=== PATIENT | male | born 1955 | race Caucasian/White ===

== ENCOUNTER 2016-08-28 13:23 | Observation (INO) ==
[2016-08-28] MEDS ORDERED: Aspirin 81 MG TAB.CHEW PO ONE (13:57)
--- NOTE | 2016-08-28 13:58 | Emergency Department Note ---
Disposition Clinical Impression: Chest pain Qualifiers: Chest pain type: unspecified Qualified Code(s): R07.9 - Chest pain, unspecified Disposition: Admitted As Inpatient Condition: Fair Referrals: NO,PCP [Primary Care Provider] - Forms: ED Satisfaction Letter Time of Disposition: 16:06 Chest Pain HPI - General Chief Complaint: ED Chest Pain Stated Complaint: Chest pain for a few hours, dizzy as well Time Seen by Provider: 08/28/16 13:49 Source: patient Mode of arrival: ambulatory Limitations: no limitations Vital Signs Reviewed: Yes Nursing Notes Reviewed: Yes - History of Present Illness HPI Narrative: 60-year-old male with hypertension and hyperlipidemia presents chest pain arrest started approximately 3 hours prior to ED arrival. No history of heart catheterization, he may have been cathetered by Dr. Jo urine half pill, but he also had irregular heartbeats is unsure if he had a coronary catheter. Pt complaint: chest pain Onset (ago): hour(s) (3) Duration: intermittent Pain Location: substernal, right chest Severity scale (1-10): 8 Quality: aching Improves with: nothing Worsens with: exertion Associated symptoms: Reports: nausea Treatments prior to arrival chest pain: none - Related Data Home Medications Medication Instructions Recorded Confirmed Aspirin 81 mg PO DAILY 06/09/15 05/17/16 Carvedilol [Coreg] 3.125 mg PO BID 06/09/15 05/17/16 Citalopram [CeleXA] 20 mg PO HS 06/09/15 05/17/16 ClonazePAM [Klonopin] 0.5 mg PO BID 06/09/15 05/17/16 Pravastatin Sodium [Pravachol] 20 mg PO HS 06/09/15 05/17/16 Losartan [Cozaar] 25 mg PO DAILY 12/07/15 05/17/16 Nitroglycerin [Nitrostat] 0.4 mg SL Q5M PRN 12/07/15 05/17/16 Pantoprazole Sodium [Protonix] 40 mg PO BID 12/07/15 05/17/16 Albuterol Sulfate [Proventil Hfa] 2 puff IH Q4HR PRN 05/17/16 05/17/16 Cholecalciferol (D-3) [Vitamin D] 2,000 unit PO DAILY 05/17/16 05/17/16 Doxazosin Mesylate [Cardura Xl] 4 mg PO DAILY 05/17/16 05/17/16 Oxygen 2 l .ROUTE HS 05/17/16 05/17/16 Allergies Allergy/AdvReac Type Severity Reaction Status Date / Time No Known Allergies Allergy Verified 05/17/16 07:13 Review of Systems: A 14 point ROS was obtained and was negative except as per below or as documented in the HPI. Constitutional: Denies: fever, chills, weakness, weight change Eyes: Denies: eye pain, eye discharge, vision change ENT: Denies: ear pain, throat pain, hearing loss, epistaxis, congestion, Cardiovascular: chest pain,Denies: palpitations, dyspnea on exertion, edema, syncope Respiratory: Denies: cough, dyspnea, wheezes, hemoptysis, stridor Gastrointestinal: Denies: abdominal pain, nausea, vomiting. diarrhea, constipation, hematemesis, hematochezia Genitourinary: Denies: urgency, dysuria, frequency, hematuria Musculoskeletal: Denies: back pain, neck pain, arthralgia, myalgia Integumentary: Denies: rash, abrasion, lesions Neurological: Denies: headache, weakness, numbness, paresthesias, confusion, abnormal gait Psychiatric: Denies: anxiety, depression, suicidal thoughts, homicidal thoughts , Endocrine: Denies: fatigue Hematological/Lymphatic: Denies: easy bleeding, easy bruising Allergic/Immunologic: Denies: facial swelling, urticaria All systems ED: reviewed and negative except as stated. Chest Pain PMH - Past Medical History Medical history: Reports: atrial fibrillation, GERD, hyperlipidemia, hypertension, kidney stones Surgical history: Reports: other Psychiatric history: Reports: no psych history - Social History Smoking Status: Never smoker Alcohol use: Reports: none Drug use: Reports: none Physical Exam General: alert and oriented, in NAD, appears stated age, is pleasant and cooperative to exam Head: NCAT, no lesions Eyes: sclera anicteric, conjunctiva normal, PERRLA bilaterally, EOMI Bilaterally Ears: normal inspection, external ear wnl Nose: nasal septum nondeviated, sinuses nontender Throat: good dentition, mucous membranes moist Neck: no lymphadenopathy, trachea midline no deviation, no JVD Resp: CTA bilaterally, no resp distress, symmetric chest rise, no wheezes, rales , or rhonchi bilaterally CV: RRR, normal S1 and S2, no m/g/r, Pulses +2 Rad, +2 DP/PT Abdomen: Soft, NTND, no hepatosplenomegaly, no hernias, Negative Rovsing's sign , Negative Au's sign Back: normal inspection, no tenderness to palpation, Negative CVA tenderness bilaterally Neuro: A&O3, CN II-XII grossly intact bilaterally, no motor or sensory deficits bilaterally, gait normal, GCS 15 [id number] Ext: normal inspection, symmetric Active and Passive ROM UE and LE bilaterally , no pedal edema bilaterally Psych: normal mood, normal affect Skin: No rashes, skin warm, dry, intact - General General appearance: alert, in no apparent distress Course Course Narrative: 60-year-old male with a heart score of 4, awaiting troponin, chest pain at rest , history of PVCs and SVT ablation with Dr. Jo a year and half ago, unclear if previous cardiac catheterization or not, his risk factors include hypertension hyperlipidemia, obesity. Chest pain approximately 3 hours prior to arrival. - Reevaluation(s) Reevaluation #1: Dr. Bradley spoke with Dr. Salvador, there is no previous cardiac catheterization , recommended admission, I did speak with Dr[facility]. Time: 16:05 Vital Signs Temperature 97.5 F L 08/28/16 13:24 Pulse Rate 64 08/28/16 13:24 Respiratory Rate 18 08/28/16 13:24 Blood Pressure 133/89 08/28/16 13:24 O2 Sat by Pulse Oximetry 96 08/28/16 13:24 Temperature 97.5 F L 08/28/16 13:24 Pulse Rate 55 08/28/16 15:45 Respiratory Rate 20 08/28/16 15:45 Blood Pressure 131/77 08/28/16 15:45 O2 Sat by Pulse Oximetry 97 08/28/16 15:45 Oxygen Delivery Oxygen Delivery Room Air Chest Pain - MDM Narrative Medical decision making narrative: 60-year-old male heart score for admitted for chest pain rule out. Troponin EKG initially negative, occasional PVCs, he has no history of heart catheterization, his chest pain started 3 hours prior to arrival. Admitted to medicine service in stable condition - Differential Diagnosis Likely: fracture of rib, pneumothorax, atypical chest pain, st elevation myocardial infraction, chest pain - Medical Records Medical records reviewed: Yes I reviewed the patient's medical records. - Lab Data Lab results reviewed: Yes I reviewed the patient's lab results. Result diagrams: 08/28/16 13:40 08/28/16 13:40 Lab Results 08/28/16 08/28/16 08/28/16 Range/Units 13:40 13:40 13:40 WBC 4.3 (4.3-11.1) K/mcL RBC 3.97 L (4.19-5.50) M/mcL Hgb 13.2 (12.9-16.9) g/dL Hct 37.8 (37.5-50.1) % MCV 95.2 (83.0-100.0) fL MCH 33.2 (28.0-33.3) pg MCHC 34.9 (31.6-35.5) g/dL RDW 14.6 H (11.5-14.5) % Plt Count 143 (140-400) K/mcL MPV 10.7 (9.4-12.4) fL Immature Gran % 0.2 (0-4) % Seg Neutrophils % 57.9 % Lymphocytes % 30.8 % Monocytes % 8.1 % Eosinophils % 2.1 % Basophils % 0.9 % Neutrophils # 2.5 (1.6-8.9) K/mcL Lymphocytes # 1.3 (0.6-4.6) K/mcL Monocytes # 0.4 (0.0-1.3) K/mcL Eosinophils # 0.1 (0.0-0.6) K/mcL Basophils # 0.0 (0.0-0.2) K/mcL PT 12.5 H (9.4-12.1) Seconds INR 1.2 APTT 30.4 (26.0-36.0) Seconds Sodium (136-145) mEq/L Potassium (3.5-4.5) mEq/L Chloride (98-109) mEq/L Carbon Dioxide (19-29) mEq/L BUN (8-26) mg/dL Creatinine (0.72-1.25) mg/dL Est GFR ( Amer) (> 60) Est GFR (Non-Af Amer) (> 60) BUN/Creatinine Ratio (6-26) Glucose (70-99) mg/dL Calculated Osmolality (280-300) Calcium (8.6-10.8) mg/dL Troponin I (0-0.03) ng/mL B-Natriuretic Peptide 106 H (0-100) pg/mL 08/28/16 08/28/16 Range/Units 13:40 13:40 WBC (4.3-11.1) K/mcL RBC (4.19-5.50) M/mcL Hgb (12.9-16.9) g/dL Hct (37.5-50.1) % MCV (83.0-100.0) fL MCH (28.0-33.3) pg MCHC (31.6-35.5) g/dL RDW (11.5-14.5) % Plt Count (140-400) K/mcL MPV (9.4-12.4) fL Immature Gran % (0-4) % Seg Neutrophils % % Lymphocytes % % Monocytes % % Eosinophils % % Basophils % % Neutrophils # (1.6-8.9) K/mcL Lymphocytes # (0.6-4.6) K/mcL Monocytes # (0.0-1.3) K/mcL Eosinophils # (0.0-0.6) K/mcL Basophils # (0.0-0.2) K/mcL PT (9.4-12.1) Seconds INR APTT (26.0-36.0) Seconds Sodium 140 (136-145) mEq/L Potassium 3.8 (3.5-4.5) mEq/L Chloride 107 (98-109) mEq/L Carbon Dioxide 25 (19-29) mEq/L BUN 11 (8-26) mg/dL Creatinine 0.88 (0.72-1.25) mg/dL Est GFR ( Amer) > 60 (> 60) Est GFR (Non-Af Amer) > 60 (> 60) BUN/Creatinine Ratio 13 (6-26) Glucose 85 (70-99) mg/dL Calculated Osmolality 289 (280-300) Calcium 8.8 (8.6-10.8) mg/dL Troponin I 0.01 (0-0.03) ng/mL B-Natriuretic Peptide (0-100) pg/mL - Radiology Data Radiology results reviewed: Yes I reviewed the patient's radiology results. Chest X-Ray 08/28/16 13:57 IMPRESSION: No acute cardiac or pulmonary disease. D/ / Luis Plascencia MD / Luis Plascencia MD Interpreting Provider: Luis Plascencia MD - EKG Data EKG attestation: Yes I reviewed and interpreted this EKG. EKG shows normal: sinus rhythm Rhythm: NSR (67 bpm, occasional PVCs. 159 and MD interval QRS 82 QTC 414) Interpretation: nonspecific ST-T wave changes - Core Measures AMI Core Measures Followed: Yes Heart Score - Score History: Moderately Suspicious EKG: Normal Age: 45-65 Risk Factors: Equal/Greater than 3 risk factor or history of atherosclerotic disease Troponin: Less than normal limit HEART Score Total: 4
[2016-08-28 14:12] LABS: Basophils % 0.9 %; Eosinophils # 0.1 K/mcL (0.0-0.6); Eosinophils % 2.1 %; Hematocrit 37.8 % (37.5-50.1); Hemoglobin 13.2 g/dL (12.9-16.9); Immature Granulocytes % 0.2 % (0-4); Lymphocytes # 1.3 K/mcL (0.6-4.6); Lymphocytes % 30.8 %; Mean Corpuscular HGB Conc 34.9 g/dL (31.6-35.5); Mean Corpuscular Hemoglobin 33.2 pg (28.0-33.3); Mean Corpuscular Volume 95.2 fL (83.0-100.0); Mean Platelet Volume 10.7 fL (9.4-12.4); Monocytes # 0.4 K/mcL (0.0-1.3); Monocytes % 8.1 %; Neutrophils # 2.5 K/mcL (1.6-8.9); Platelet Count 143 K/mcL (140-400); Red Blood Count 3.97 M/mcL (4.19-5.50); Red Cell Distribution Width 14.6 % (11.5-14.5); Segmented Neutrophils % 57.9 %
[2016-08-28 14:15] LABS: INR 1.2; Prothrombin Time 12.5 Seconds (9.4-12.1)
[2016-08-28 14:18] LABS: Activated Partial Thrombo Time 30.4 Seconds (26.0-36.0)
[2016-08-28 14:23] LABS: BUN/Creatinine Ratio 13 (6-26); Blood Urea Nitrogen 11 mg/dL (8-26); Calcium 8.8 mg/dL (8.6-10.8); Carbon Dioxide 25 mEq/L (19-29); Chloride 107 mEq/L (98-109); Glucose 85 mg/dL (70-99); Osmolality,Calculated 289 (280-300); Potassium 3.8 mEq/L (3.5-4.5); Sodium 140 mEq/L (136-145); eGFR For African Americans > 60 (> 60); eGFR For Non-African Americans > 60 (> 60)
[2016-08-28] MEDS: Nitroglycerin 0.4 MG TAB.SUBL SL ONE ×3 (14:39→15:14)
--- NOTE | 2016-08-28 15:56 | Emergency Department Note ---
Disposition Clinical Impression: Chest pain Qualifiers: Chest pain type: unspecified Qualified Code(s): R07.9 - Chest pain, unspecified Disposition: Admitted As Inpatient Condition: Fair General Adult HPI - General Chief complaint: ED Chest Pain Stated complaint: Chest pain for a few hours, dizzy as well Time Seen by Provider: 08/28/16 13:49 Source: patient Mode of arrival: ambulatory Limitations: no limitations - History of Present Illness Pain Scale: 0 - Related Data Home Medications Medication Instructions Recorded Confirmed Aspirin 81 mg PO DAILY 06/09/15 08/28/16 Carvedilol [Coreg] 3.125 mg PO BID 06/09/15 08/28/16 Citalopram [CeleXA] 20 mg PO HS 06/09/15 08/28/16 ClonazePAM [Klonopin] 0.5 mg PO BID 06/09/15 08/28/16 Pravastatin Sodium [Pravachol] 20 mg PO HS 06/09/15 08/28/16 Losartan [Cozaar] 25 mg PO DAILY 12/07/15 08/28/16 Nitroglycerin [Nitrostat] 0.4 mg SL Q5M PRN 12/07/15 08/28/16 Pantoprazole Sodium [Protonix] 40 mg PO BID 12/07/15 08/28/16 Albuterol Sulfate [Proventil Hfa] 2 puff IH Q4HR PRN 05/17/16 08/28/16 Cholecalciferol (D-3) [Vitamin D] 2,000 unit PO DAILY 05/17/16 08/28/16 Doxazosin Mesylate [Cardura Xl] 4 mg PO DAILY 05/17/16 08/28/16 Oxygen 2 l .ROUTE HS 05/17/16 08/28/16 Allergies Allergy/AdvReac Type Severity Reaction Status Date / Time No Known Allergies Allergy Verified 05/17/16 07:13 Past Medical History - Past Medical History Medical history: Reports: atrial fibrillation, GERD, hyperlipidemia, hypertension, kidney stones Surgical history: Reports: other Psychiatric history: Reports: no psych history - Social History Smoking Status: Never smoker Smokeless Tobacco Status: No Alcohol use: Reports: none Drug use: Reports: none Physical Exam - General Limitations: no limitations General appearance: alert, in no apparent distress Course - Reevaluation(s) Reevaluation #1: Saw the patient with the resident, Dr. Contreras. Patient presents with vague chest pain to the right chest and radiates into his left shoulder. Been going on for several hours prior to arrival. His EKG looks okay and his initial set of enzymes negative. However patient has risk factors and story is concerning for cardiac pain. He thought he had a heart Physician development more than a year ago here at [place] but I spoke to the regional safety manager on-call, Dr. Jo, and she went through all the records and there is no evidence of a heart catheterization. There is a cardiac ablation done a number of years ago but otherwise no significant procedures. Therefore we will admit the patient for serial enzymes and rule out KS. Time: 15:56 Vital Signs Temperature 97.5 F L 08/28/16 13:24 Pulse Rate 64 08/28/16 13:24 Respiratory Rate 18 08/28/16 13:24 Blood Pressure 133/89 08/28/16 13:24 O2 Sat by Pulse Oximetry 96 08/28/16 13:24 Temperature 97.7 F 08/30/16 07:15 Pulse Rate 69 08/30/16 07:15 Respiratory Rate 16 08/30/16 07:15 Blood Pressure 148/95 08/30/16 07:15 O2 Sat by Pulse Oximetry 98 08/30/16 07:15 Oxygen Delivery Oxygen Delivery Room Air Medical Decision Making - Lab Data Result diagrams: 08/29/16 00:58 08/29/16 00:58 Lab Results 08/28/16 08/28/16 08/28/16 Range/Units 13:40 13:40 13:40 WBC 4.3 (4.3-11.1) K/mcL RBC 3.97 L (4.19-5.50) M/mcL Hgb 13.2 (12.9-16.9) g/dL Hct 37.8 (37.5-50.1) % MCV 95.2 (83.0-100.0) fL MCH 33.2 (28.0-33.3) pg MCHC 34.9 (31.6-35.5) g/dL RDW 14.6 H (11.5-14.5) % Plt Count 143 (140-400) K/mcL MPV 10.7 (9.4-12.4) fL Immature Gran % 0.2 (0-4) % Seg Neutrophils % 57.9 % Lymphocytes % 30.8 % Monocytes % 8.1 % Eosinophils % 2.1 % Basophils % 0.9 % Neutrophils # 2.5 (1.6-8.9) K/mcL Lymphocytes # 1.3 (0.6-4.6) K/mcL Monocytes # 0.4 (0.0-1.3) K/mcL Eosinophils # 0.1 (0.0-0.6) K/mcL Basophils # 0.0 (0.0-0.2) K/mcL PT 12.5 H (9.4-12.1) Seconds INR 1.2 APTT 30.4 (26.0-36.0) Seconds Sodium (136-145) mEq/L Potassium (3.5-4.5) mEq/L Chloride (98-109) mEq/L Carbon Dioxide (19-29) mEq/L BUN (8-26) mg/dL Creatinine (0.72-1.25) mg/dL Est GFR ( Amer) (> 60) Est GFR (Non-Af Amer) (> 60) BUN/Creatinine Ratio (6-26) Glucose (70-99) mg/dL Calculated Osmolality (280-300) Calcium (8.6-10.8) mg/dL Troponin I (0-0.03) ng/mL B-Natriuretic Peptide 106 H (0-100) pg/mL 08/28/16 08/28/16 Range/Units 13:40 13:40 WBC (4.3-11.1) K/mcL RBC (4.19-5.50) M/mcL Hgb (12.9-16.9) g/dL Hct (37.5-50.1) % MCV (83.0-100.0) fL MCH (28.0-33.3) pg MCHC (31.6-35.5) g/dL RDW (11.5-14.5) % Plt Count (140-400) K/mcL MPV (9.4-12.4) fL Immature Gran % (0-4) % Seg Neutrophils % % Lymphocytes % % Monocytes % % Eosinophils % % Basophils % % Neutrophils # (1.6-8.9) K/mcL Lymphocytes # (0.6-4.6) K/mcL Monocytes # (0.0-1.3) K/mcL Eosinophils # (0.0-0.6) K/mcL Basophils # (0.0-0.2) K/mcL PT (9.4-12.1) Seconds INR APTT (26.0-36.0) Seconds Sodium 140 (136-145) mEq/L Potassium 3.8 (3.5-4.5) mEq/L Chloride 107 (98-109) mEq/L Carbon Dioxide 25 (19-29) mEq/L BUN 11 (8-26) mg/dL Creatinine 0.88 (0.72-1.25) mg/dL Est GFR ( Amer) > 60 (> 60) Est GFR (Non-Af Amer) > 60 (> 60) BUN/Creatinine Ratio 13 (6-26) Glucose 85 (70-99) mg/dL Calculated Osmolality 289 (280-300) Calcium 8.8 (8.6-10.8) mg/dL Troponin I 0.01 (0-0.03) ng/mL B-Natriuretic Peptide (0-100) pg/mL Attestation Statement - Attestation Attestation: I, Dr. Sainz, examined this patient [id number] and my medical decision- making was reviewed with Dr. Contreras, Resident Physician. I agree with the documented findings, disposition and treatment plan as described except to the extent set forth below. Please see my progress notes for details.
--- NOTE | 2016-08-28 16:59 | Internal Med History&Physical ---
<Osvaldo Kelley - Last Filed: 08/28/16 17:15> Date of Encounter: 08/28/16 Time of Encounter: 16:58 Assessment and Plan (1) Chest pain Current visit: Yes Status: Acute Patient does exhibit signs of both typical and atypical chest pain given location and relief by nitro Will order both echocardiogram and nuclear stress test for further evaluation Obtain serial troponins x2 in addition to serial EKGs as patient has history of SVTs s/p ablation Continue patient on home ASA, Statin, BB if HR > 60, and supplemental oxygen; Morphine PRN Cardiac diet for now, but NPO after midnight in anticipation for tomorrow's procedures Qualifiers: Chest pain type: unspecified Qualified Code(s): R07.9 - Chest pain, unspecified (2) Hypertension Current visit: Yes Status: Chronic Continue home Losartan, Coreg with holding parameters if bradycardia present Monitor vitals closely while on telemetry Qualifiers: Qualified Code(s): I10 - Essential (primary) hypertension (3) AF (paroxysmal atrial fibrillation) Current visit: Yes Status: Chronic Currently in NSR with frequent PVCs, which he has history of Continue Coreg as above with holding parameters (4) Anxiety Current visit: Yes Status: Chronic Continue home dose of Klonopin and Celexa Internal Medicine - H&P: HPI Chief complaint: chest pain Admitted From: Home Plans for Post Hospital Care: Home History of present illness: Mr. Belcher is a 60 year old male who presents with chest pain that started 3 hours prior to arrival at the ED when he was arguing with his . He states the pain is located at the right side and radiates to his left arm. He had a similar episode 2 months ago but was not worked up as the ER said his symptoms were from anxiety. He also reports having shortness of breath and nausea, but no vomiting, diaphoresis, or lightheadedness. He denies having previous MIs or catheterizations but does report history of SVT that required ablation 1.5 years ago. Patient states that he does take ASA and Nitro at home, and the nitro at the ED did relieve his pain somewhat, but it still persists. His shortness of breath has also improved. Past Med Surg Social Fam HX - Past Medical History Medical history: atrial fibrillation, GERD, hyperlipidemia, hypertension, kidney stones Psychiatric history: no psych history - Past Surgical History Surgical History: other - Social History Smoking Status: Never smoker Smokeless Tobacco Status: No Alcohol use: none Drug use: none Internal Medicine - H&P: Meds RX: Aspirin 81 mg PO DAILY 06/09/15 [History] RX: Carvedilol [Coreg] 3.125 mg PO BID 06/09/15 [History] RX: Citalopram [CeleXA] 20 mg PO HS 06/09/15 [History] RX: ClonazePAM [Klonopin] 0.5 mg PO BID 06/09/15 [History] RX: Pravastatin Sodium [Pravachol] 20 mg PO HS 06/09/15 [History] RX: Losartan [Cozaar] 25 mg PO DAILY 12/07/15 [History] RX: Nitroglycerin [Nitrostat] 0.4 mg SL Q5M PRN 12/07/15 [History] RX: Pantoprazole Sodium [Protonix] 40 mg PO BID 12/07/15 [History] RX: Albuterol Sulfate [Proventil Hfa] 2 puff IH Q4HR PRN 05/17/16 [History] RX: Cholecalciferol (D-3) [Vitamin D] 2,000 unit PO DAILY 05/17/16 [History] RX: Doxazosin Mesylate [Cardura Xl] 4 mg PO DAILY 05/17/16 [History] RX: Oxygen 2 l .ROUTE HS 05/17/16 [History] Allergies No Known Allergies Allergy (Verified 05/17/16 07:13) All Systems PM: A 10-system review of systems was performed and is negative for pertinent findings except as documented above in the HPI. - Constitutional Constitutional: no chills, no fever(s), no night sweats - EENT Eyes: no change in vision, no discharge, no pain, no photophobia Nose, mouth and throat: no dysphagia, no nasal discharge, no neck pain, no sore throat - Cardiovascular Cardiovascular ROS IM: chest pain, dyspnea, no diaphoresis, no lightheadedness, no palpitations, no syncope - Respiratory Respiratory: dyspnea, no cough, no wheezing, no excessive phlegm production - Gastrointestinal Gastrointestinal: nausea, no abdominal pain, no diarrhea, no hematemesis, no hematochezia, no melena, no vomiting - Musculoskeletal Musculoskeletal ROS IM: no numbness, no tingling - Integumentary Integumentary IM: no rash, no unusual bruising - Neurological Neurological ROS: no confusion, no convulsions, no focal weakness, no numbness, no tingling, no tremor(s) - Hematologic/Lymphatic Hematologic/Lymphatic: no easy bruising - Constitutional Vitals: Temp Pulse Resp BP Pulse Ox 97.5 F L 55 20 131/77 97 08/28/16 13:24 08/28/16 15:45 08/28/16 15:45 08/28/16 15:45 08/28/16 15:45 General appearance: Present: cooperative, pleasant, no acute distress, answers questions appropriately - Head Head exam: Present: atraumatic, normocephalic - Eye Eye exam: Present: PERRL, conjuntiva pink, sclera anicteric - Neck Neck exam general surgery: Present: supple, trachea midline. Absent: lymphadenopathy - Respiratory Respiratory exam: Present: CTAB. Absent: accessory muscle use, rales, rhonchi, wheezes - Cardiovascular Cardiovascular exam: Present: bradycardia, irregular rhythm, +S1, +S2. Absent: diastolic murmur, gallop, rubs, systolic murmur - GI/Abdominal GI/Abdominal exam: Present: normal bowel sounds, soft, no peritoneal signs. Absent: distended, tenderness - Extremities Exam Extremities exam: Present: warm, radial pulses palpable and symetrical. Absent : calf tenderness, cyanotic, pedal edema - Neurological Exam Neurological exam: Present: alert, oriented X3, no focal deficits. Absent: facial droop, speech deficit - Skin Skin exam: Present: dry, intact Internal Med - H&P Results - Labs CBC & Chem 7: 08/28/16 13:40 08/28/16 13:40 <Sue Parmar - Last Filed: 08/28/16 18:15> Date of Encounter: 08/28/16 Time of Encounter: 18:14 Internal Medicine - H&P: HPI History of present illness: Mr. Belcher is a 60 year old male All Systems PM: A 10-system review of systems was performed and is negative for pertinent findings except as documented above in the HPI. - Constitutional Vitals: Temp Pulse Resp BP Pulse Ox 98.0 F 57 17 135/72 93 L 08/28/16 17:17 08/28/16 17:17 08/28/16 17:17 08/28/16 17:17 08/28/16 17:17 Internal Med - H&P Results - Labs CBC & Chem 7: 08/28/16 13:40 08/28/16 13:40 - Attending Attestation Patient was independently seen and examined at bedside. Case discussed with the resident physician. I agree with the care plan and management. Will provide patient with O2 supplementation. Pain control Serial TNI x 3, if negative-Nuclear stress test in am continue home medications.
[2016-08-28] MEDS ORDERED: Naloxone 0.4 MG/ML INJ IVP PRN (17:04)
[2016-08-28] MEDS ORDERED: Acetaminophen 325 MG TABLET PO PRN (17:04)
[2016-08-28] MEDS ORDERED: Ondansetron ODT 4 MG TAB.RAPDIS SL PRN (17:04)
[2016-08-28] MEDS ORDERED: Nitroglycerin 0.4 MG TAB.SUBL SL PRN (17:09)
[2016-08-28] MEDS: *HR* Morphine 2 MG/ML SYRINGE IVP PRN (19:34)
[2016-08-28] MEDS: clonazePAM 0.5 MG TABLET PO SCH (21:00)
[2016-08-29] MEDS: *HR* Morphine 2 MG/ML SYRINGE IVP PRN ×4 (00:20→22:21)
[2016-08-29 01:39] LABS: Hemoglobin 12.3 g/dL (12.9-16.9); Mean Corpuscular HGB Conc 34.2 g/dL (31.6-35.5); Mean Corpuscular Volume 96.5 fL (83.0-100.0); Mean Platelet Volume 10.7 fL (9.4-12.4); Platelet Count 126 K/mcL (140-400); Red Blood Count 3.73 M/mcL (4.19-5.50); Red Cell Distribution Width 14.5 % (11.5-14.5)
[2016-08-29 01:54] LABS: BUN/Creatinine Ratio 13 (6-26); Blood Urea Nitrogen 11 mg/dL (8-26); Calcium 8.5 mg/dL (8.6-10.8); Carbon Dioxide 26 mEq/L (19-29); Chloride 106 mEq/L (98-109); Chol/HDL Ratio 3.3 (0-4.9); Cholesterol 117 mg/dL (< 200); Glucose 95 mg/dL (70-99); HDL Cholesterol 36 mg/dL (40-59); LDL Cholesterol,Calculated 65 mg/dL (0-99); Osmolality,Calculated 287 (280-300); Potassium 3.6 mEq/L (3.5-4.5); Sodium 139 mEq/L (136-145); Triglycerides 78 mg/dL (< 150); eGFR For African Americans > 60 (> 60); eGFR For Non-African Americans > 60 (> 60)
[2016-08-29] MEDS ORDERED: Regadenoson 0.4 MG/5 ML SYRINGE IVP ONE (06:19)
--- NOTE | 2016-08-29 09:35 | ECHO - Doppler Report ---
Echocardiogram Name: Rg HDZ Date of Study: 08/28/2016 Date: 1955 Ht: 69.0 in Medical Record#: [id number] Age: 60 Wt: 185.0 lb Gender: Male BSA: 2 Order #: [id number] Location: [facility] Room #: 3B39 Reading Physician: Leo Stallings DO, JENNYFER DENSON FASNC Police Specialist: Jelena Roy Ordering Physician: Osvaldo Kelley DO Primary Physician: None Indications: Chest pain, Hx AFIB/SVT Impressions: LVEF 60%. Normal LV chamber size and wall thickness. Not all LV segments were well visualized, but overall LVEF appears normal. Mild left ventricular diastolic dysfunction. Normal right ventricular structure and function. Mild aortic regurgitation. No evidence of pulmonary hypertension. Mildly dilated aortic root. Sinuses of Valsalva measure 4.0 cm. There is a trivial inferolateral pericardial effusion present. No tamponade. Left Ventricular Wall Motion: Rest Echo Findings The apical anterior, mid anterior and basal anterior perez were not visualized. All other wall segments showed normal motion. Findings: Study Quality * Technically sub-optimal due to poor echocardiographic windows. ECG Findings * Sinus rhythm with PVCs. Left Ventricle * LVEF 60%. * Normal LV chamber size and wall thickness. * Not all LV segments were well visualized, but overall LVEF appears normal. * Mild left ventricular diastolic dysfunction. Right Ventricle * Normal right ventricular structure and function. Left Atrium * Moderately dilated left atrium. Right Atrium * Normal right atrial size. Interatrial Septum * Interatrial septum not well evaluated. Aortic Valve * Aortic valve not well visualized. * Mild aortic regurgitation. * No aortic stenosis. Mitral Valve * Normal mitral valve structure and function. * No mitral stenosis. * Trace mitral regurgitation. Tricuspid Valve * Normal tricuspid valve structure and function. * Trace tricuspid regurgitation. * No evidence of pulmonary hypertension. Pulmonic Valve * Pulmonic valve not well visualized. * No pulmonic regurgitation. Aorta * Mildly dilated aortic root. Sinuses of Valsalva measure 4.0 cm. Pericardium * There is a trivial inferolateral pericardial effusion present. * There is no echocardiographic evidence of tamponade. IVC * The IVC is not well evaluated. Pulmonary Artery * Pulmonary artery not well visualized. History Hypertension Hypercholesteremia 03/01/2014 a Previous Echo was performed. Measurements: BP: 135/ 72 2D Normal Values RVIDd: 2.58 cm <2.7 cm IVSd: .65 cm 0.6 - 1.0 cm LVIDd: 5.49 cm 3.7 - 5.6 cm LVPWd: .86 cm 0.6 - 1.1 cm LVIDs: 4.18 cm 1.5 - 3.6 cm AO: 3.80 cm < 4.0 cm LA: 3.70 cm 2.0 - 4.0cm %FS: 23.90 cm >25 % LVOT Diam: 2.75 cm LA volume: 65 Mitral Valve Peak E:.70 m/sec Peak A:.83 m/sec E/A Ratio:0.8 Peak E' Lat Jarrod:7.09 cm/s Peak E' Med Jarrod:6.71 cm/s E/E' Lat Ratio:9.9 E/E' Med Ratio:10.4 Aortic Valve AI pressure Half-time: 949.00 msec Tricuspid Valve TV Regurg Peak Grad: 16.00mmHg TV Regurg Peak Jarrod: 2.01m/sec Updated by Leo Stallings DO, FACMinerva, JENNYFER, LETA on 08/29/2016 9:28:23 AM electronically signed on 08/29/2016 9:30:01 AM with status of Final Wall Motion Ward: 1=Normal, 2=Hypokinesis, 3=Akinesis, 4=Dyskinesis, 5=Aneurysmal, 6=Hyperkinetic, X=Not Visualized (Blank)=Missing
--- NOTE | 2016-08-29 09:38 | Nuclear Medicine Stress Report ---
Regadenoson Nuclear Stress Name: Rg HDZ Date of Study: 08/29/2016 Date: 1955 Ht: 69.0 in Medical Record#: [id number] Age: 60 Wt: 185.0 lb Gender: Male Order #: [id number] Location: [facility] IP Room: [facility] Supervising Provider: Katt Barone CNP Reading Physician: Leo Stallings DO, JANIYA, LETA BURGER Ordering Physician: Maria T Jaquez CNP Primary Care Physician: Dusty Morales DO Stress Technologist: Trudy Sarmiento, JANUARY Television Agent: Siddhartha Pineda Indications: Chest Pain Impression: Pharmacologic stress ECG is non-diagnostic for ischemia due to submaximal HR. Frequent monomorphic PVCs noted during stress and recovery. Gated EF = 60%. Perfusion imaging was negative for ischemia or infarct. History: Hypertension Hypercholesteremia Stress Test Summary: Stress Test Type: Pharmacologic Regadenoson 0.4mg/5ml given IV Baseline Information: Initial Heart Rate: 51 Blood Pressure: 148/88 Stress Information: Test Terminated Due to (primary): As per protocol Maximum Blood Pressure: 116/84 Maximum Heart Rate: 74 Percent Maximum Heart Rate Achieved: 46 Double Product: 8584 METS Reached: 1 Symptoms: No chest symptoms Nuclear Summary: SPECT myocardial perfusion imaging using Tc99m Sestamibi given intravenously was performed at rest and following cardiac stress testing. The resting images were obtained following initial dose of 11.6 mCi. Following stress an additional dose of 35.6 mCi was given at peak exercise or 30 seconds post regadenoson infusion. Medication Given: Time Medication Dose Units Route Findings: Stress Note * Resting ECG demonstrated normal sinus rhythm. * No baseline arrhythmias were noted. * Pharmacologic stress ECG is non-diagnostic for ischemia due to submaximal HR. * Frequent monomorphic PVCs noted during stress and recovery. * Patient had no chest pain during stress. * Normal hemodynamic responses to pharmacologic stress. Study Quality * Study quality is average. Gated EF % * Gated EF = 60%. Left Ventricle * The left ventricle is not dilated. LVEDV = 125 mL. NORMALS * Normal wall motion. * Normal segmental perfusion in stress. Apical Perfusion Rest * The apical septal segment shows a moderate reduction in perfusion. This resolved with stress imaging, which is consistent with artifact. TID * No evidence of transient ischemic dilatation. TID ratio = 0.85. Lung Uptake * There is no evidence of increase lung uptake. Updated by Leo Stallings DO, FACMinerva, JENNYFER, LETA on 08/29/2016 9:33:26 AM electronically signed on 08/29/2016 9:35:02 AM with status of Final
[2016-08-29] MEDS: DOXAZOSIN MESYLATE 4 MG PO SCH (10:02)
[2016-08-29] MEDS: clonazePAM 0.5 MG TABLET PO SCH ×2 (10:02→20:11)
[2016-08-29] MEDS: Aspirin 81 MG TAB.CHEW PO SCH (10:02)
--- NOTE | 2016-08-29 10:02 | Electrocardiograph Report ---
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
--- NOTE | 2016-08-29 17:22 | Internal Med Progress Note ---
Date of Encounter: 08/29/16 Time of Encounter: 17:18 - Assessment and plan (1) Chest pain Current Visit: Yes Status: Acute Assessment and plan: c/o right sided chest pain, tropx2 is negative. no reproducible chest wall tenderness, No past history of VT or CHF. less likely cardiac in nature. Has history of hypertension and hyperlipidemia. We will follow results of nuclear stress test and echo. continue medical management . Qualifiers: Chest pain type: unspecified Qualified Code(s): R07.9 - Chest pain, unspecified (2) AF (paroxysmal atrial fibrillation) Current Visit: Yes Status: Chronic Assessment and plan: Currently in NSR with frequent PVCs, which he has history of Continue Coreg (3) Anxiety Current Visit: Yes Status: Chronic Assessment and plan: Continue home dose of Klonopin and Celexa (4) Hypertension Current Visit: Yes Status: Chronic Assessment and plan: Continue home Losartan, Coreg Monitor vitals closely while on telemetry Qualifiers: Qualified Code(s): I10 - Essential (primary) hypertension - Time Spent With Patient 25 - 35 minutes - Subjective Interval history: was seen at the bedside, c/o right sided chest pain, denies any palpitations or shortness of breath. No nausea or vomiting. Scheduled for nuclear stress test this morning. - Constitutional Vitals: Temp Pulse Resp BP Pulse Ox 98.3 F 63 17 119/77 94 L 08/29/16 15:28 08/29/16 15:28 08/29/16 15:28 08/29/16 15:28 08/29/16 15:28 General appearance: Present: cooperative, A&O X 3, pleasant, no acute distress, answers questions appropriately Exam: neck- supple chest- b/lc lear, no reproducible chest wall tenderness cvs-s1 and s2, no m/r/g abd-soft, non tender, bs are present ext-no edema neuro- no focal defecits Internal Medicine: Result - Labs CBC & Chem 7: 08/29/16 00:58 08/29/16 00:58 Labs: Short CBC 08/29/16 Range/Units 00:58 WBC 4.8 (4.3-11.1) K/mcL Hgb 12.3 L (12.9-16.9) g/dL Hct 36.0 L (37.5-50.1) % Plt Count 126 L (140-400) K/mcL BMP 08/29/16 00:58 Sodium 139 Potassium 3.6 Chloride 106 Carbon Dioxide 26 BUN 11 Creatinine 0.85 Glucose 95 Calcium 8.5 L Cardiac Enzymes 08/28/16 08/29/16 Range/Units 20:21 00:58 Troponin I 0.00 0.01 (0-0.03) ng/mL - ABG Interpretation ABG results: PT/INR, D-dimer PT 12.5 Seconds (9.4-12.1) H 08/28/16 13:40 - VTE Documentation of Mechanical Device: Intermittent pneumatic compression device Consult Discharge Plan - Plan Referrals: NO,PCP [Primary Care Provider] -
[2016-08-30] MEDS: clonazePAM 0.5 MG TABLET PO SCH ×2 (08:01→20:56)
[2016-08-30] MEDS: Aspirin 81 MG TAB.CHEW PO SCH (08:01)
[2016-08-30] MEDS: *HR* Morphine 2 MG/ML SYRINGE IVP PRN (08:05)
[2016-08-30] MEDS: DOXAZOSIN MESYLATE 4 MG PO SCH (08:06)
[2016-08-30] MEDS: Ibuprofen 400 MG TABLET PO PRN ×2 (14:54→21:02)
--- NOTE | 2016-08-30 17:33 | Internal Med Progress Note ---
Date of Encounter: 08/30/16 Time of Encounter: 17:30 - Assessment and plan (1) Chest pain Current Visit: Yes Status: Acute Assessment and plan: c/o right and sometimes left sided chest pain, tropx2 is negative. no reproducible chest wall tenderness, No past history of OK or CHF. less likely cardiac in nature. Has history of hypertension and hyperlipidemia. results of nuclear stress test and echo is negative for ischemia and infarction. Have discontinued morphine, denies GI symptoms. will observe one more day for the chest pain,placed on motrin for now, unclear etiology. If stable overnight can be discharged tomorrow to follow-up with PCP as outpatient. Qualifiers: Chest pain type: unspecified Qualified Code(s): R07.9 - Chest pain, unspecified (2) AF (paroxysmal atrial fibrillation) Current Visit: Yes Status: Chronic Assessment and plan: Currently in NSR with frequent PVCs, which he has history of Continue Coreg (3) Anxiety Current Visit: Yes Status: Chronic Assessment and plan: Continue home dose of Klonopin and Celexa reports sob and appears to be hyperventilationg. will add ativan prn, CXR is clear and no abnormal findings on lung exam may be 2/2 anxiety , will observe. (4) Hypertension Current Visit: Yes Status: Chronic Assessment and plan: Continue home Losartan, Coreg Monitor vitals closely while on telemetry Qualifiers: Hypertension type: essential hypertension Qualified Code(s): I10 - Essential (primary) hypertension - Time Spent With Patient 25 - 35 minutes - Subjective Interval history: was seen at the bedside, c/o on and off right /left chest pain, denies any palpitations but later during the day c/o mild sob. No nausea or vomiting. Nuclear stress test in the morning was negative for ischemia or infarction. - Constitutional Vitals: Temp Pulse Resp BP Pulse Ox 98.0 F 68 17 134/95 96 08/30/16 15:06 08/30/16 15:06 08/30/16 15:06 08/30/16 15:06 08/30/16 15:06 General appearance: Present: cooperative, A&O X 3, pleasant, no acute distress, answers questions appropriately Exam: neck- supple chest- b/lc lear, no reproducible chest wall tenderness cvs-s1 and s2, no m/r/g abd-soft, non tender, bs are present ext-no edema neuro- no focal defecits Internal Medicine: Result - Labs CBC & Chem 7: 08/29/16 00:58 08/29/16 00:58 - ABG Interpretation ABG results: PT/INR, D-dimer PT 12.5 Seconds (9.4-12.1) H 08/28/16 13:40 - VTE Documentation of Mechanical Device: Intermittent pneumatic compression device Consult Discharge Plan - Plan Referrals: NO,PCP [Non-Partnered Physician] -
[2016-08-31] MEDS: Aspirin 81 MG TAB.CHEW PO SCH (07:36)
[2016-08-31] MEDS: clonazePAM 0.5 MG TABLET PO SCH (07:36)
[2016-08-31] MEDS: DOXAZOSIN MESYLATE 4 MG PO SCH (07:37)
[2016-08-31] MEDS: Ibuprofen 400 MG TABLET PO PRN (12:15)
[2016-08-31 15:49] VITALS: BP 160/100
--- NOTE | 2016-08-31 15:50 | Discharge Summary ---
Date of Encounter: 08/31/16 Time of Encounter: 10:00 - Discharge Diagnosis (1) Chest pain Priority: Primary Status: Acute Qualifiers: Chest pain type: unspecified Qualified Code(s): R07.9 - Chest pain, unspecified - Discharge Medications Home Medications: Aspirin 81 mg PO DAILY 06/09/15 [History] Carvedilol [Coreg] 3.125 mg PO BID 06/09/15 [History] Citalopram [CeleXA] 20 mg PO HS 06/09/15 [History] ClonazePAM [Klonopin] 0.5 mg PO BID 06/09/15 [History] Pravastatin Sodium [Pravachol] 20 mg PO HS 06/09/15 [History] Losartan [Cozaar] 25 mg PO DAILY 12/07/15 [History] Nitroglycerin [Nitrostat] 0.4 mg SL Q5M PRN 12/07/15 [History] Pantoprazole Sodium [Protonix] 40 mg PO BID 12/07/15 [History] Albuterol Sulfate [Proventil Hfa] 2 puff IH Q4HR PRN 05/17/16 [History] Cholecalciferol (D-3) [Vitamin D] 2,000 unit PO DAILY 05/17/16 [History] Doxazosin Mesylate [Cardura Xl] 4 mg PO DAILY 05/17/16 [History] Oxygen 2 l .ROUTE HS 05/17/16 [History] Allergies/Adverse Reactions: Allergies No Known Allergies Allergy (Verified 05/17/16 07:13) Procedures/tests Complete & Pending: Procedures Performed prior 72 hours Category Date Time Status NM faby perf SPECT multi [NM] Routine Exams 08/29/16 07:00 Taken ECG 12 lead ECG [ECG] Routine Y 08/30/16 20:00 Completed EV echocardiogram Routine Y 08/28/16 17:04 Completed SP pharm nuclear stress Routine Y 08/29/16 07:30 Completed Date of admission: 08/28/16 16:01 Primary care physician: Tressa Bowers Discharging clinician: Dez Stark - Patient Status Disposition: Home, Self-Care Overall status at discharge: patient is progressing back to baseline - Discharge Instructions Instructions: Chest Pain (DC) Follow Up With: NO,PCP [Non-Partnered Physician] - - Diet and Activity Activity: increase activity as tolerated Interval History: Pt is a 60 y/o gentleman [facility] significant for HTN and dyslipidemia presented with one day hx of chest pain cardiac stress test and markers negative most likely due to anxiety, recommend to follow up with his PCP in one week Hospital course: Mr. Belcher is a 60 year old male - Time Spent with Patient Total time spent providing and/or coordinating discharge services: Greater than 30 minutes - Constitutional Vitals: Temp Pulse Resp BP Pulse Ox 97.8 F 64 14 137/91 96 08/31/16 11:16 08/31/16 11:16 08/31/16 11:16 08/31/16 11:16 08/31/16 11:16 General appearance: Present: cooperative, A&O X 3, pleasant, no acute distress, answers questions appropriately - Respiratory Respiratory exam: Present: decreased breath sounds - Cardiovascular Cardiovascular exam: Present: RRR, +S1, +S2 - GI/Abdominal GI/Abdominal exam: Present: normal bowel sounds - Extremities Exam Extremities exam: Present: warm, radial pulses palpable and symetrical - VTE Documentation of Mechanical Device: Intermittent pneumatic compression device
--- NOTE | 2016-08-31 16:29 | Electrocardiograph Report ---
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
== END 2016-08-31 17:45 | disposition home or self-care (01) ==
LOC: 3BNU 13:23 → EMEROO 13:23 → 3BNU 16:59
PROVIDERS: ADMIT Internal Medicine; ATTEND Nurse Practitioner Family

== ENCOUNTER 2019-05-24 14:55 | Observation (INO) ==
[2019-05-24] MEDS ORDERED: Aspirin 325 MG TABLET PO ONE (15:08)
[2019-05-24 15:16] LABS: Basophils % 0.4 %; Eosinophils # 0.1 K/mcL (0.0-0.6); Eosinophils % 1.2 %; Hematocrit 40.9 % (37.5-50.1); Hemoglobin 14.2 g/dL (12.9-16.9); Immature Granulocytes % 0.4 % (0-4); Lymphocytes # 2.5 K/mcL (0.6-4.6); Lymphocytes % 31.7 %; Mean Corpuscular HGB Conc 34.7 g/dL (31.6-35.5); Mean Corpuscular Hemoglobin 33.3 pg (28.0-33.3); Mean Corpuscular Volume 95.8 fL (83.0-100.0); Mean Platelet Volume 9.9 fL (9.4-12.4); Monocytes # 0.6 K/mcL (0.0-1.3); Monocytes % 7.9 %; Neutrophils # 4.7 K/mcL (1.6-8.9); Platelet Count 164 K/mcL (140-400); Red Blood Count 4.27 M/mcL (4.19-5.50); Red Cell Distribution Width 16.4 % (11.5-14.5); Segmented Neutrophils % 58.4 %
[2019-05-24] MEDS: Nitroglycerin 0.4 MG TAB.SUBL SL SCH ×3 (15:17→15:42)
[2019-05-24 15:23] LABS: Prothrombin Time 11.5 Seconds (9.4-12.1)
[2019-05-24 15:26] LABS: Activated Partial Thrombo Time 28.3 Seconds (26.0-36.0)
[2019-05-24 15:38] LABS: BUN/Creatinine Ratio 10 (6-26); Blood Urea Nitrogen 10 mg/dL (8-23); Calcium 9.2 mg/dL (8.6-10.3); Carbon Dioxide 30 mEq/L (23-29); Chloride 105 mEq/L (98-107); Glucose 114 mg/dL (70-105); Osmolality,Calculated 284 (280-300); Sodium 137 mEq/L (136-145); eGFR For African Americans > 60 (> 60); eGFR For Non-African Americans > 60 (> 60)
[2019-05-24 15:39] LABS: Troponin I < 0.03 ng/mL (< 0.04)
[2019-05-24] MEDS ORDERED: Potassium Chloride Elixir 20 MEQ/15 ML UDC PO ONE (15:43)
[2019-05-24] MEDS ORDERED: Morphine Sulfate 2 MG/ML SYRINGE IVP ONE ×2 (15:56→20:08)
[2019-05-24] MEDS ORDERED: Naloxone 0.4 MG/ML INJ IVP PRN (16:58)
[2019-05-24] MEDS: Colchicine 0.6 MG TABLET PO SCH (19:58)
[2019-05-25] MEDS: *HR* Enoxaparin 40 MG/0.4 ML SYRINGE SQ SCH (06:11)
[2019-05-25] MEDS ORDERED: Regadenoson 0.4 MG/5 ML SYRINGE IVP ONE (06:31)
[2019-05-25 07:56] LABS: Hematocrit 41.9 % (37.5-50.1); Hemoglobin 14.3 g/dL (12.9-16.9); Mean Corpuscular HGB Conc 34.1 g/dL (31.6-35.5); Mean Corpuscular Hemoglobin 33.4 pg (28.0-33.3); Mean Corpuscular Volume 97.9 fL (83.0-100.0); Mean Platelet Volume 10.4 fL (9.4-12.4); Platelet Count 160 K/mcL (140-400); Red Blood Count 4.28 M/mcL (4.19-5.50); Red Cell Distribution Width 16.7 % (11.5-14.5); White Blood Count 5.7 K/mcL (4.3-11.1)
[2019-05-25 08:15] LABS: Alanine Aminotransferase 23 Units/L (7-52); Albumin 3.7 g/dL (3.5-5.7); Albumin/Globulin Ratio 1.5 (1.1-2.2); Alkaline Phosphatase 122 Units/L (34-104); Aspartate Amino Transferase 23 Units/L (13-39); BUN/Creatinine Ratio 14 (6-26); Bilirubin,Total 0.6 mg/dL (0.3-1.0); Blood Urea Nitrogen 13 mg/dL (8-23); Calcium 9.1 mg/dL (8.6-10.3); Carbon Dioxide 30 mEq/L (23-29); Chloride 104 mEq/L (98-107); Globulin 2.5 g/dL (2.4-3.5); Glucose 96 mg/dL (70-105); Osmolality,Calculated 290 (280-300); Potassium 3.5 mEq/L (3.5-5.1); Sodium 140 mEq/L (136-145); Total Protein 6.2 g/dL (6.4-8.9); eGFR For African Americans > 60 (> 60); eGFR For Non-African Americans > 60 (> 60)
[2019-05-25] MEDS: predniSONE 10 MG TABLET PO SCH (10:49)
[2019-05-25] MEDS: Aspirin 81 MG TAB.CHEW PO SCH (10:49)
[2019-05-25] MEDS: Colchicine 0.6 MG TABLET PO SCH ×2 (10:49→20:55)
[2019-05-25] MEDS: Fluticasone Propionate Nasal 50 MCG/SPRAY BOTTLE NS SCH (10:50)
[2019-05-25] MEDS ORDERED: Nitroglycerin 0.4 MG TAB.SUBL SL PRN (12:14)
[2019-05-25] MEDS: Nitroglycerin 25 MG/250 ML INFUS..BTL IVC SCH (12:56)
[2019-05-26] MEDS: *HR* Enoxaparin 40 MG/0.4 ML SYRINGE SQ SCH (05:21)
[2019-05-26] MEDS: Colchicine 0.6 MG TABLET PO SCH (07:55)
[2019-05-26] MEDS: Fluticasone Propionate Nasal 50 MCG/SPRAY BOTTLE NS SCH (07:55)
[2019-05-26] MEDS: predniSONE 10 MG TABLET PO SCH (07:56)
[2019-05-26] MEDS: Aspirin 81 MG TAB.CHEW PO SCH (07:56)
[2019-05-26] MEDS: Nitroglycerin 25 MG/250 ML INFUS..BTL IVC SCH (11:15)
[2019-05-26] MEDS ORDERED: *HR* Heparin 10,000 UNIT/10 ML VIAL ONE (13:04)
[2019-05-26] MEDS ORDERED: Nitroglycerin 1,000 MCG/10 ML VIAL IV ONE (13:04)
[2019-05-26] MEDS ORDERED: Iopamidol 125 ML INFUS..BTL ONE (13:04)
[2019-05-26] MEDS ORDERED: Heparin 1,000 UNITS/500 mL 500 ML ONE (13:04)
[2019-05-26] MEDS ORDERED: 0.9 % Sodium Chloride 1,000 ML ONE ×2 (13:04→13:05)
[2019-05-26] MEDS ORDERED: Verapamil 5 MG/2 ML VIAL ONE (13:04)
[2019-05-26] MEDS ORDERED: *HR* Midazolam HCl 2 MG/2 ML VIAL ONE (13:51)
[2019-05-26] MEDS ORDERED: *HR* FentaNYL (PF) 100 MCG/2 ML VIAL ONE (13:51)
[2019-05-26] MEDS ORDERED: ISOVUE-370 200 ML INFUS..BTL ONE (14:25)
[2019-05-26] MEDS ORDERED: Isosorbide MONOnitrate (24 HR) 30 MG TAB.ER.24H PO SCH (16:15)
[2019-05-26 19:13] VITALS: BP 131/77
== END 2019-05-26 19:15 | disposition home or self-care (01) ==
LOC: EMEROOARM 14:55 → 3BNU 14:55 → SUATTDRO 17:02 → 3BNU 17:53
PROVIDERS: ADMIT Pharmacist; ATTEND Student in an Organized Health Care Education/Training Program

== ENCOUNTER 2019-09-18 11:54 | Observation (INO) ==
[2019-09-18] MEDS ORDERED: Aspirin 81 MG TAB.CHEW PO STA (12:21)
[2019-09-18] MEDS: Nitroglycerin 0.4 MG TAB.SUBL SL PRN ×2 (12:58→13:05)
[2019-09-18 12:59] LABS: Basophils # 0.1 K/mcL (0.0-0.2); Basophils % 0.9 %; Eosinophils # 0.2 K/mcL (0.0-0.6); Eosinophils % 3.9 %; Hematocrit 39.5 % (37.5-50.1); Hemoglobin 14.2 g/dL (12.9-16.9); Immature Granulocytes % 0.2 % (0-4); Lymphocytes # 1.4 K/mcL (0.6-4.6); Lymphocytes % 24.2 %; Mean Corpuscular HGB Conc 35.9 g/dL (31.6-35.5); Mean Corpuscular Hemoglobin 34.3 pg (28.0-33.3); Mean Corpuscular Volume 95.4 fL (83.0-100.0); Monocytes # 0.5 K/mcL (0.0-1.3); Monocytes % 8.4 %; Neutrophils # 3.5 K/mcL (1.6-8.9); Platelet Count 165 K/mcL (140-400); Red Blood Count 4.14 M/mcL (4.19-5.50); Red Cell Distribution Width 12.9 % (11.5-14.5); Segmented Neutrophils % 62.4 %; White Blood Count 5.6 K/mcL (4.3-11.1)
[2019-09-18 13:03] LABS: INR 1.1; Prothrombin Time 12.2 Seconds (9.4-12.1)
[2019-09-18 13:06] LABS: Activated Partial Thrombo Time 32.9 Seconds (26.0-36.0)
[2019-09-18 13:20] LABS: BUN/Creatinine Ratio 13 (6-26); Blood Urea Nitrogen 11 mg/dL (8-23); Calcium 8.9 mg/dL (8.6-10.3); Carbon Dioxide 28 mEq/L (23-29); Chloride 102 mEq/L (98-107); Glucose 84 mg/dL (70-105); Osmolality,Calculated 287 (280-300); Potassium 3.8 mEq/L (3.5-5.1); Sodium 139 mEq/L (136-145); eGFR For African Americans > 60 (> 60); eGFR For Non-African Americans > 60 (> 60)
[2019-09-18 13:21] LABS: Troponin I < 0.03 ng/mL (< 0.04)
[2019-09-18] MEDS ORDERED: Naloxone 0.4 MG/ML INJ IVP PRN (17:31)
[2019-09-18] MEDS ORDERED: Mag Hydrox/Al Hydrox/Simeth 30 ML UDC PO PRN (17:31)
[2019-09-18] MEDS ORDERED: MOM Conc 10 ML UD.LIQ PO PRN (17:31)
[2019-09-18] MEDS ORDERED: *HR* Promethazine 25 MG/ML VIAL IVP PRN (17:31)
[2019-09-18] MEDS ORDERED: Acetaminophen 325 MG TABLET PO PRN (17:31)
[2019-09-18] MEDS ORDERED: Ondansetron 4 MG/2 ML VIAL IVP PRN (17:31)
[2019-09-18] MEDS: *HR* Heparin 5,000 UNIT/ML VIAL SQ SCH (19:29)
[2019-09-19] MEDS: *HR* Heparin 5,000 UNIT/ML VIAL SQ SCH (06:01)
[2019-09-19 07:56] VITALS: BP 154/99
[2019-09-19] MEDS ORDERED: Isosorbide MONOnitrate (24 HR) 60 MG TAB.ER.24H PO SCH (09:00)
[2019-09-19] MEDS ORDERED: Fluticasone Propionate Nasal 50 MCG/SPRAY BOTTLE NS SCH (09:00)
[2019-09-19] MEDS ORDERED: Aspirin 81 MG TAB.CHEW PO SCH (09:00)
[2019-09-19] MEDS ORDERED: Cholecalciferol (D-3) 1,000 UNIT (25MCG) TABLET PO SCH (09:00)
[2019-09-19 09:34] LABS: Basophils # 0.1 K/mcL (0.0-0.2); Basophils % 0.9 %; Eosinophils # 0.3 K/mcL (0.0-0.6); Eosinophils % 4.5 %; Hematocrit 41.6 % (37.5-50.1); Hemoglobin 15.1 g/dL (12.9-16.9); Immature Granulocytes % 0.2 % (0-4); Lymphocytes # 1.2 K/mcL (0.6-4.6); Lymphocytes % 17.9 %; Mean Corpuscular HGB Conc 36.3 g/dL (31.6-35.5); Mean Corpuscular Hemoglobin 34.3 pg (28.0-33.3); Mean Corpuscular Volume 94.5 fL (83.0-100.0); Mean Platelet Volume 9.8 fL (9.4-12.4); Monocytes # 0.5 K/mcL (0.0-1.3); Neutrophils # 4.5 K/mcL (1.6-8.9); Platelet Count 157 K/mcL (140-400); Red Cell Distribution Width 12.7 % (11.5-14.5); Segmented Neutrophils % 68.5 %; White Blood Count 6.6 K/mcL (4.3-11.1)
[2019-09-19 09:53] LABS: BUN/Creatinine Ratio 13 (6-26); Blood Urea Nitrogen 11 mg/dL (8-23); Calcium 8.8 mg/dL (8.6-10.3); Carbon Dioxide 27 mEq/L (23-29); Chloride 103 mEq/L (98-107); Chol/HDL Ratio 2.6 (0-4.9); Cholesterol 113 mg/dL (< 200); Glucose 101 mg/dL (70-105); HDL Cholesterol 44 mg/dL (40-59); LDL Cholesterol,Calculated 60 mg/dL (0-99); Osmolality,Calculated 286 (280-300); Potassium 3.9 mEq/L (3.5-5.1); Sodium 138 mEq/L (136-145); Triglycerides 46 mg/dL (< 150); eGFR For African Americans > 60 (> 60); eGFR For Non-African Americans > 60 (> 60)
== END 2019-09-19 12:35 | disposition home or self-care (01) ==
LOC: 3BNU 11:54 → EMEROOARM 11:54 → 3BNU 15:58
PROVIDERS: ADMIT Internal Medicine; ATTEND Internal Medicine

== ENCOUNTER 2020-02-25 16:07 | Observation (INO) ==
[2020-02-25 16:57] LABS: Basophils % 0.8 %; Eosinophils # 0.4 K/mcL (0.0-0.6); Eosinophils % 6.9 %; Hematocrit 38.9 % (37.5-50.1); Hemoglobin 13.6 g/dL (12.9-16.9); Immature Granulocytes % 0.2 % (0-4); Lymphocytes # 1.7 K/mcL (0.6-4.6); Mean Corpuscular Hemoglobin 34.5 pg (28.0-33.3); Mean Corpuscular Volume 98.7 fL (83.0-100.0); Mean Platelet Volume 10.1 fL (9.4-12.4); Monocytes # 0.4 K/mcL (0.0-1.3); Monocytes % 8.4 %; Neutrophils # 2.7 K/mcL (1.6-8.9); Platelet Count 160 K/mcL (140-400); Red Blood Count 3.94 M/mcL (4.19-5.50); Red Cell Distribution Width 13.7 % (11.5-14.5); Segmented Neutrophils % 50.7 %; White Blood Count 5.2 K/mcL (4.3-11.1)
[2020-02-25 17:14] LABS: BUN/Creatinine Ratio 19 (6-26); Blood Urea Nitrogen 15 mg/dL (8-23); Calcium 8.9 mg/dL (8.6-10.3); Carbon Dioxide 25 mEq/L (23-29); Chloride 106 mEq/L (98-107); Glucose 108 mg/dL (70-105); Osmolality,Calculated 289 (280-300); Potassium 3.5 mEq/L (3.5-5.1); Sodium 139 mEq/L (136-145); Troponin I < 0.03 ng/mL (< 0.04); eGFR For African Americans > 60 (> 60); eGFR For Non-African Americans > 60 (> 60)
[2020-02-25] MEDS ORDERED: Isovue-370 500 ML BOTTLE IVP ONE (17:37)
[2020-02-25 20:19] LABS: Troponin I < 0.03 ng/mL (< 0.04)
[2020-02-25 21:40] LABS: Thyroid Stimulating Hormone 20.777 mcIU/mL (0.340-5.600)
[2020-02-26] MEDS ORDERED: Naloxone 0.4 MG/ML INJ IVP PRN (00:53)
[2020-02-26] MEDS ORDERED: Nitroglycerin 0.4 MG TAB.SUBL SL PRN (00:56)
[2020-02-26] MEDS ORDERED: *HR* Promethazine 25 MG/ML VIAL IVP PRN (01:52)
[2020-02-26] MEDS ORDERED: Acetaminophen 325 MG TABLET PO PRN (01:52)
[2020-02-26 03:09] LABS: Basophils # 0.1 K/mcL (0.0-0.2); Basophils % 0.8 %; Eosinophils # 0.4 K/mcL (0.0-0.6); Eosinophils % 5.7 %; Hematocrit 41.8 % (37.5-50.1); Hemoglobin 14.2 g/dL (12.9-16.9); Immature Granulocytes % 0.2 % (0-4); Lymphocytes # 1.9 K/mcL (0.6-4.6); Lymphocytes % 30.2 %; Mean Corpuscular Hemoglobin 33.9 pg (28.0-33.3); Mean Corpuscular Volume 99.8 fL (83.0-100.0); Mean Platelet Volume 10.1 fL (9.4-12.4); Monocytes # 0.4 K/mcL (0.0-1.3); Neutrophils # 3.5 K/mcL (1.6-8.9); Platelet Count 168 K/mcL (140-400); Red Blood Count 4.19 M/mcL (4.19-5.50); Red Cell Distribution Width 13.8 % (11.5-14.5); Segmented Neutrophils % 56.1 %; White Blood Count 6.3 K/mcL (4.3-11.1)
[2020-02-26 03:11] LABS: INR 1.1; Prothrombin Time 12.3 Seconds (9.4-12.1)
[2020-02-26 03:24] LABS: Alanine Aminotransferase 14 Units/L (7-52); Albumin 3.6 g/dL (3.5-5.7); Albumin/Globulin Ratio 1.3 (1.1-2.2); Alkaline Phosphatase 184 Units/L (34-104); Aspartate Amino Transferase 18 Units/L (13-39); BUN/Creatinine Ratio 14 (6-26); Bilirubin,Total 0.9 mg/dL (0.3-1.0); Blood Urea Nitrogen 12 mg/dL (8-23); Carbon Dioxide 27 mEq/L (23-29); Chloride 104 mEq/L (98-107); Globulin 2.7 g/dL (2.4-3.5); Glucose 90 mg/dL (70-105); Magnesium 1.7 mg/dL (1.6-2.6); Osmolality,Calculated 285 (280-300); Potassium 3.4 mEq/L (3.5-5.1); Sodium 138 mEq/L (136-145); Total Protein 6.3 g/dL (6.4-8.9); eGFR For African Americans > 60 (> 60); eGFR For Non-African Americans > 60 (> 60)
[2020-02-26] MEDS ORDERED: *HR* Enoxaparin 40 MG/0.4 ML SYRINGE SQ SCH (06:00)
[2020-02-26] MEDS ORDERED: Azithromycin 500 MG in 0.9 % Sodium Chloride 250 ML IVPB SCH (09:00)
[2020-02-26] MEDS ORDERED: Cholecalciferol (D-3) 1,000 UNIT (25MCG) TABLET PO SCH (09:00)
[2020-02-26] MEDS ORDERED: Aspirin 81 MG TAB.CHEW PO SCH (09:00)
[2020-02-26] MEDS ORDERED: predniSONE 20 MG TABLET PO SCH (09:00)
[2020-02-26] MEDS ORDERED: Fluticasone Propionate Nasal 50 MCG/SPRAY BOTTLE NS SCH (09:00)
[2020-02-26] MEDS ORDERED: Isosorbide MONOnitrate (24 HR) 60 MG TAB.ER.24H PO SCH (09:00)
[2020-02-26 12:18] VITALS: BP 99/77
== END 2020-02-26 14:54 | disposition home or self-care (01) ==
LOC: EMEROOARM 16:07 → 2NENU 16:07
PROVIDERS: ADMIT Student in an Organized Health Care Education/Training Program; ATTEND Student in an Organized Health Care Education/Training Program

== ENCOUNTER 2021-02-24 12:17 | Observation (INO) ==
[2021-02-24] MEDS ORDERED: Aspirin 325 MG TABLET PO ONE (12:53)
[2021-02-24] MEDS ORDERED: Nitroglycerin 0.4 MG TAB.SUBL SL ONE (12:54)
[2021-02-24 12:58] LABS: Basophils % 0.8 %; Eosinophils # 0.3 K/mcL (0.0-0.6); Eosinophils % 5.6 %; Hematocrit 36.8 % (37.5-50.1); Hemoglobin 12.5 g/dL (12.9-16.9); Immature Granulocytes % 0.2 % (0-4); Immature Platelets 4.4 % (1.1-6.1); Lymphocytes # 1.3 K/mcL (0.6-4.6); Lymphocytes % 25.5 %; Mean Corpuscular Hemoglobin 32.7 pg (28.0-33.3); Mean Corpuscular Volume 96.3 fL (83.0-100.0); Mean Platelet Volume 10.5 fL (9.4-12.4); Monocytes # 0.5 K/mcL (0.0-1.3); Neutrophils # 2.9 K/mcL (1.6-8.9); Platelet Count 136 K/mcL (140-400); Red Blood Count 3.82 M/mcL (4.19-5.50); Red Cell Distribution Width 14.1 % (11.5-14.5); Segmented Neutrophils % 58.9 %
[2021-02-24 13:12] LABS: INR 1.2; Prothrombin Time 13.5 Seconds (9.4-12.1)
[2021-02-24 13:13] LABS: BUN/Creatinine Ratio 18 (6-26); Blood Urea Nitrogen 15 mg/dL (8-23); Calcium 8.7 mg/dL (8.6-10.3); Carbon Dioxide 26 mEq/L (23-29); Chloride 107 mEq/L (98-107); Glucose 92 mg/dL (70-105); Osmolality,Calculated 288 (280-300); Potassium 3.8 mEq/L (3.5-5.1); Sodium 139 mEq/L (136-145); Troponin I < 0.03 ng/mL (< 0.04); eGFR For African Americans > 60 (> 60); eGFR For Non-African Americans > 60 (> 60)
[2021-02-24 13:15] LABS: Activated Partial Thrombo Time 28.6 Seconds (26.0-36.0)
[2021-02-24] MEDS ORDERED: Isovue-370 500 ML BOTTLE IVP ONE (13:20)
[2021-02-24] MEDS ORDERED: 0.9 % Sodium Chloride 1,000 ML IVC ONE (13:21)
[2021-02-24] MEDS ORDERED: Acetaminophen 325 MG TABLET PO PRN (15:25)
[2021-02-24] MEDS ORDERED: Ondansetron ODT 4 MG TAB.RAPDIS SL PRN (15:25)
[2021-02-24] MEDS ORDERED: rOPINIRole 0.25 MG TABLET PO SCH (21:00)
[2021-02-25] MEDS ORDERED: *HR* Enoxaparin 40 MG/0.4 ML SYRINGE SQ SCH (06:00)
[2021-02-25] MEDS ORDERED: Regadenoson 0.4 MG/5 ML SYRINGE IVP ONE (06:22)
[2021-02-25] MEDS ORDERED: Aspirin 81 MG TAB.CHEW PO SCH (09:00)
[2021-02-25 09:59] VITALS: BP 151/98
== END 2021-02-25 13:35 | disposition home or self-care (01) ==
LOC: EMEROOARM 12:17 → 3BNU 12:17 → SUATTDRO 15:23 → 3BNU 15:25
PROVIDERS: ADMIT Internal Medicine; ATTEND Family Medicine